=== PATIENT | male | born 1945 | race African-American/Black ===

== ENCOUNTER 2023-01-25 10:09 | Emergency (ER) | payer BC, MEDICARE, OTHER ==
[~2023-01-25] VITALS: Ht 172.7 cm; Wt 80.0 kg
[2023-01-25 10:11] VITALS: BP 170/82; PULSE 85; RESP 18; TEMP 98.5; O2SAT 99
[2023-01-25 11:04] LABS: BASOPHILS % 0.2 % (0.0-2.0); DIFFERENTIAL COMMENT 0; EOSINOPHILS % 0.1 % (0.0-5.0); HEMOGLOBIN. 15.8 g/dL (14.0-18.0); LYMPHOCYTES % 11.4 % (20.0-50.0); MEAN CORPUSCULAR HEMOGLOBIN 30.3 pg (28.0-32.0); MEAN CORPUSCULAR HGB CONC 33.6 g/dL (31.0-37.0); MEAN CORPUSCULAR VOLUME 90.2 fL (80.0-94.0); MEAN PLATELET VOLUME 9.5 fl (7.4-10.4); NEUTROPHILS % 83.3 % (40.0-76.0); PLATELET 131 x1000/uL (130-400); RED CELL DISTRIBUTION WIDTH 15.8 % (11.6-14.6); WHITE BLOOD COUNT 6.4 x1000/uL (4.5-11.0)
[2023-01-25 11:14] LABS: PROTHROMBIN TIME 11.2 sec (9.6-11.0)
[2023-01-25 11:29] LABS: CHLORIDE 103 mEq/L (98-107); INDEX HEMOLYSI 1 (1-3); INDEX ICTERIC 1 (1-4); INDEX LIPEMIC 1 (1-3); POTASSIUM 3.9 mEq/L (3.5-5.1); SODIUM 131 mEq/L (136-145)
[2023-01-25 11:38] LABS: ALANINE AMINOTRANSFERASE 32 IU/L (13-61); ALBUMIN 3.8 g/dL (3.4-5.0); ASPARTATE AMINOTRANSFERASE 29 IU/L (15-37); BILIRUBIN TOTAL 0.9 mg/dL (0.1-1.0); CALCIUM 8.8 mg/dL (8.5-10.1); CARBON DIOXIDE 21 mEq/L (21-32); CREATININE 0.7 mg/dL (0.6-1.3); GLUCOSE 126 mg/dL (70-105); PROTEIN TOTAL 9.1 g/dL (6.0-8.3); UREA NITROGEN BLOOD 19 mg/dL (7-21)
[2023-01-25] MEDS ORDERED: NITR-87 MT (12:25)
[2023-01-25] MEDS ORDERED: FINA5TAB11 MT (12:25)
[2023-01-25] MEDS ORDERED: TAMS-11 MT (12:25)
== END 2023-01-25 14:55 | disposition home or self-care (01) ==
LOC: ER 10:29
DX: R10.30 Lower abdominal pain, unspecified (principal)
CPT/HCPCS: 36415; 80053; 85025; 99283